=== PATIENT | male | born 1985 | race Caucasian/White ===

== ENCOUNTER 2016-07-27 19:04 | Emergency (ER) | payer SELFPAY ==
[2016-07-27 21:07] LABS: BASOPHIL % 1.1 % (0-2); PLATELET COUNT 259 x10^3mcL (130-400); RED CELL DISTRIBUTION WIDTH 12.4 % (11.5-14.5)
[2016-07-27 21:22] LABS: CALCIUM 9.3 mg/dL (8.5-10.1); CARBON DIOXIDE 28.8 mmol/L (21-32); CHLORIDE SERUM 102 mmol/L (98-107); CREATININE SERUM 1.1 mg/dL (0.7-1.3); GFR1 > 60 mL/min; GLUCOSE SERUM 118 mg/dL (74-106); POTASSIUM SERUM 3.8 mmol/L (3.5-5.1); SODIUM SERUM 140 mmol/L (136-145)
[2016-07-27 21:31] LABS: ALKALINE PHOSPHATASE 66 U/L (46-116); ALT/SGPT 102 U/L (16-63); AST/SGOT 41 U/L (15-37); BILIRUBIN TOTAL 0.33 mg/dL (0.20-1.00); LIPASE 291 IU/L (73-393); TOTAL PROTEIN, SERUM 7.7 g/dL (6.4-8.2)
[2016-07-27 22:48] VITALS: BP 120/75
== END 2016-07-27 22:48 | disposition home or self-care (01) ==
LOC: ED 19:04
PROVIDERS: Emergency Medicine
DX: K29.70 Gastritis, unspecified, without bleeding (principal); K80.70 Calculus of gallbladder and bile duct without cholecystitis without obstruction; D72.829 Elevated white blood cell count, unspecified; R74.0 Nonspecific elevation of levels of transaminase and lactic acid dehydrogenase [LDH]; Z79.899 Other long term (current) drug therapy
CPT/HCPCS: J2405; J7030; Q0092

== ENCOUNTER 2017-09-10 08:10 | Emergency (ER) | payer MEDICAID ==
[~2017-09-10] VITALS: Ht 165.1 cm; Wt 104.0 kg
[2017-09-10 08:15] VITALS: Ht 165.1 cm; Wt 104.0 kg
[2017-09-10 09:24] LABS: BASOPHIL % 0.7 % (0-2); PLATELET COUNT 234 x10^3mcL (130-400); RED CELL DISTRIBUTION WIDTH 13.1 % (11.5-14.5)
[2017-09-10 09:27] LABS: microscopic required? NO
[2017-09-10 09:58] LABS: UA SPECIFIC GRAVITY 1.025 (1.005-1.035); urine erythrocyte NEGATIVE (NEGATIVE)
[2017-09-10 10:06] LABS: CALCIUM 8.9 mg/dL (8.5-10.1); CHLORIDE SERUM 105 mmol/L (98-107); CREATININE SERUM 1.1 mg/dL (0.7-1.3); GFR1 > 60 mL/min; GLUCOSE SERUM 101 mg/dL (74-106); POTASSIUM SERUM 4.4 mmol/L (3.5-5.1); SODIUM SERUM 138 mmol/L (136-145)
[2017-09-10 10:12] LABS: ALBUMIN 3.8 g/dL (3.4-5.0); ALKALINE PHOSPHATASE 83 U/L (46-116); ALT/SGPT 42 U/L (16-63); AST/SGOT 19 U/L (15-37); BILIRUBIN TOTAL 0.38 mg/dL (0.20-1.00); CHOLESTEROL 179 mg/dL (<200); HDL CHOLESTEROL 53 mg/dL (40-60); MAGNESIUM 1.9 mg/dL (1.8-2.4); T4(THYROXINE) 7.4 ug/dL (4.7-13.3); TOTAL PROTEIN, SERUM 7.1 g/dL (6.4-8.2)
[2017-09-10 10:14] LABS: AMPHETAMINE QUAL UR NONE DETECTED (See below)
[2017-09-10 11:47] VITALS: BP 121/83
== END 2017-09-10 11:47 | disposition home or self-care (01) ==
LOC: ED 08:10
PROVIDERS: Emergency Medicine
DX: R53.1 Weakness (principal); H53.8 Other visual disturbances; Z90.49 Acquired absence of other specified parts of digestive tract
CPT/HCPCS: 82962; 83880

== ENCOUNTER 2017-12-02 17:46 | Emergency (ER) | payer MEDICAID ==
[~2017-12-02] VITALS: Ht 165.1 cm; Wt 97.5 kg
[2017-12-02 17:49] VITALS: Ht 165.1 cm; Wt 97.5 kg
[2017-12-02 18:35] LABS: CALCIUM 8.8 mg/dL (8.5-10.1); CARBON DIOXIDE 28.1 mmol/L (21-32); CHLORIDE SERUM 101 mmol/L (98-107); CREATININE SERUM 1.2 mg/dL (0.7-1.3); GFR1 > 60 mL/min; GLUCOSE SERUM 99 mg/dL (74-106); POTASSIUM SERUM 3.8 mmol/L (3.5-5.1); SODIUM SERUM 135 mmol/L (136-145)
[2017-12-02 18:41] LABS: BASOPHIL % 0.7 % (0-2); PLATELET COUNT 208 x10^3mcL (130-400); RED CELL DISTRIBUTION WIDTH 12.4 % (11.5-14.5)
[2017-12-02 18:59] LABS: ALKALINE PHOSPHATASE 75 U/L (46-116); ALT/SGPT 91 U/L (16-63); AST/SGOT 58 U/L (15-37); BILIRUBIN TOTAL 0.7 mg/dL (0.20-1.00); CHOLESTEROL 175 mg/dL (<200); HDL CHOLESTEROL 44 mg/dL (40-60); URIC ACID 5.9 mg/dL (3.5-7.2)
[2017-12-02 20:00] VITALS: BP 130/69
== END 2017-12-02 20:00 | disposition home or self-care (01) ==
LOC: ED 17:46
PROVIDERS: Emergency Medicine
DX: R50.9 Fever, unspecified (principal); R53.1 Weakness; R42 Dizziness and giddiness; R11.10 Vomiting, unspecified; R51 Headache
CPT/HCPCS: 36415; 83880

== ENCOUNTER 2018-09-17 06:23 | Emergency (ER) | payer OTHER ==
[~2018-09-17] VITALS: Ht 165.1 cm; Wt 104.3 kg
[2018-09-17 06:28] VITALS: BP 120/84; Ht 165.1 cm; Wt 104.3 kg
== END 2018-09-17 08:01 | disposition home or self-care (01) ==
LOC: ED 06:23
DX: S63.91XA Sprain of unspecified part of right wrist and hand, initial encounter (principal); W22.8XXA Striking against or struck by other objects, initial encounter; Y93.89 Activity, other specified; Y92.89 Other specified places as the place of occurrence of the external cause; Y99.8 Other external cause status
CPT/HCPCS: Q0092

== ENCOUNTER 2019-01-27 06:01 | Emergency (ER) | payer MEDICAID ==
[~2019-01-27] VITALS: Ht 165.1 cm; Wt 102.1 kg
[2019-01-27 06:05] VITALS: Ht 165.1 cm; Wt 102.1 kg
[2019-01-27 07:05] LABS: CALCIUM 8.7 mg/dL (8.5-10.1); CARBON DIOXIDE 27.7 mmol/L (21-32); CHLORIDE SERUM 105 mmol/L (98-107); CREATININE SERUM 1.1 mg/dL (0.7-1.3); GFR1 > 60 mL/min; GLUCOSE SERUM 107 mg/dL (74-106); POTASSIUM SERUM 4.5 mmol/L (3.5-5.1); SODIUM SERUM 142 mmol/L (136-145)
[2019-01-27 07:09] LABS: ALBUMIN 3.8 g/dL (3.4-5.0); ALKALINE PHOSPHATASE 65 U/L (46-116); ALT/SGPT 33 U/L (16-63); AST/SGOT 18 U/L (15-37); BILIRUBIN TOTAL 0.4 mg/dL (0.20-1.00); LIPASE 159 IU/L (73-393); TOTAL PROTEIN, SERUM 7.5 g/dL (6.4-8.2)
[2019-01-27 07:37] LABS: BASOPHIL % 0.3 % (0-2); PLATELET COUNT 242 x10^3mcL (130-400); RED CELL DISTRIBUTION WIDTH 12.7 % (11.5-14.5)
[2019-01-27 08:06] LABS: microscopic required? NO
[2019-01-27 09:22] LABS: UA SPECIFIC GRAVITY <=1.005 (1.005-1.035); urine erythrocyte NEGATIVE (NEGATIVE)
[2019-01-27 11:39] VITALS: BP 124/76
== END 2019-01-27 11:39 | disposition home or self-care (01) ==
LOC: ED 06:01
PROVIDERS: Emergency Medicine
DX: R10.11 Right upper quadrant pain (principal); E66.9 Obesity, unspecified; Z68.37 Body mass index [BMI] 37.0-37.9, adult; Z90.49 Acquired absence of other specified parts of digestive tract
CPT/HCPCS: J1885; Q9967

== ENCOUNTER 2019-12-28 18:37 | Emergency (ER) | payer BC, SELFPAY ==
[~2019-12-28] VITALS: Ht 165.1 cm; Wt 99.8 kg
[2019-12-28 18:38] VITALS: Ht 165.1 cm; Wt 99.8 kg
[2019-12-28 20:32] LABS: microscopic required? NO
[2019-12-28 20:45] LABS: UA SPECIFIC GRAVITY 1.015 (1.005-1.035); urine erythrocyte NEGATIVE (NEGATIVE)
[2019-12-28 21:36] VITALS: BP 139/80
== END 2019-12-28 21:33 | disposition home or self-care (01) ==
LOC: ED 18:37
PROVIDERS: Emergency Medicine
DX: B34.9 Viral infection, unspecified (principal); Z20.828 Contact with and (suspected) exposure to other viral communicable diseases; Z90.49 Acquired absence of other specified parts of digestive tract
CPT/HCPCS: U0003-CS